=== PATIENT | male | born 1985 | race Caucasian/White ===

== ENCOUNTER 2020-02-17 07:28 | Emergency (ER) | payer SELFPAY ==
[2020-02-17 07:29] VITALS: BP 124/66; PULSE 117; RESP 16; TEMP 36.6; O2SAT 98; BMI 25.8
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
--- NOTE | 2020-02-17 08:08 | PC.NURSE ---
pt refused ct scans
--- NOTE | 2020-02-17 08:20 | INFXCTL.NOTE ---
pt wanting to sign self out of hosp
--- NOTE | 2020-02-17 08:25 | PC.NURSE ---
Pt advises he would like to sign out at this time. Pt signed AMA form and left before he was seen by the doctor
[2020-02-17 08:27] VITALS: BP 124/66; PULSE 117; RESP 16; TEMP 36.5; O2SAT 98
== END 2020-02-17 08:29 | disposition left against medical advice (07) ==
PROVIDERS: Emergency Provider Family Medicine
DX: Z53.21 Procedure and treatment not carried out due to patient leaving prior to being seen by health care provider (principal); S60.221A Contusion of right hand, initial encounter; Y04.8XXA Assault by other bodily force, initial encounter; S40.022A Contusion of left upper arm, initial encounter; S40.021A Contusion of right upper arm, initial encounter
CPT/HCPCS: 73060; 73130; 99211